=== PATIENT | female | born 1965 | race Caucasian/White ===

== ENCOUNTER 2018-05-04 10:31 | Outpatient (CLI) | payer BC | END 2018-05-04 23:59 | disposition home or self-care (01) | LOC: RAD 10:31 | PROVIDERS: ATTEND Family Medicine | DX: R56.9 Unspecified convulsions (principal); F17.200 Nicotine dependence, unspecified, uncomplicated; Z88.1 Allergy status to other antibiotic agents; Z88.8 Allergy status to other drugs, medicaments and biological substances | CPT/HCPCS: 95816 ==

== ENCOUNTER 2019-11-20 17:08 | Inpatient (IN) | payer BC, MEDICAID ==
[~2019-11-20] VITALS: Ht 165.1 cm; Wt 72.0 kg
[2019-11-20] MEDS ORDERED: ondansetron/PF 4mg/2ml inj IV ONE (17:30)
[2019-11-20] MEDS ORDERED: normal saline 1000ML IV soln IVB ONE (17:30)
[2019-11-20 18:13] LABS: AMMONIA < 10 UMOL/L (11-32)
[2019-11-20 18:16] LABS: BASOPHILS # (AUTO) 0.1 X10'3 (0-0.2); BASOPHILS % (AUTO) 0.6 % (0-1); EOSINOPHILS % (AUTO) 0.2 % (0-6); HEMATOCRIT 27.3 % (35.0-45.0); HEMOGLOBIN 9.1 g/dl (12.0-16.0); LYMPHOCYTES # (AUTO) 1.8 X10'3 (1.1-4.8); LYMPHOCYTES % (AUTO) 19.2 % (21-51); MEAN CORPUSCULAR HGB CONC 33.2 g/dL (33.0-36.5); MEAN CORPUSCULAR VOLUME 81.4 FL (78-98); MEAN PLATELET VOLUME 8.6 FL (7.4-10.4); MONOCYTES # (AUTO) 0.5 X10'3 (0-0.9); MONOCYTES % (AUTO) 5.8 % (2-12); NEUTROPHILS # (AUTO) 6.8 X10'3 (1.8-7.7); NEUTROPHILS % (AUTO) 74.2 % (42-75); PLATELET COUNT 244 X10'3 (140-440); RED BLOOD COUNT 3.36 X10'6 (4.20-5.60); RED CELL DISTRIBUTION WIDTH 15.1 % (11.5-14.5); WHITE BLOOD COUNT 9.2 X10'3 (4.5-11.0)
[2019-11-20 18:17] LABS: ALANINE AMINOTRANSFERASE 30 U/L (12-78); ALBUMIN 1.3 G/DL (3.4-5.0); ALBUMIN/GLOBULIN RATIO 0.4 (1.1-1.5); ALKALINE PHOSPHATASE 110 IU/L (46-116); ANION GAP 7 (8-16); ASPARTATE AMINO TRANSFERASE 119 U/L (10-37); BILIRUBIN,TOTAL 0.3 MG/DL (0.1-1.0); BLOOD UREA NITROGEN 25 MG/DL (7-18); BUN/CREATININE RATIO 10.6 (6.6-38.0); CALCIUM 8.1 MG/DL (8.5-10.1); CHLORIDE 105 MMOL/L (99-107); CREATININE 2.35 MG/DL (0.40-0.90); GLUCOSE 126 MG/DL (70-104); SODIUM 135 MMOL/L (135-145); TOTAL CARBON DIOXIDE 22.8 MMOL/L (24-32); TOTAL PROTEIN 4.5 G/DL (6.4-8.2); eGFR 21 ML/MIN
[2019-11-20 18:22] LABS: COLOR,URINE YELLOW (Yellow); GLUCOSE, URINE 100 mg/dl (Neg); KETONES,URINE NEGATIVE (Neg); LEUKOCYTE ESTERASE ,URINE NEGATIVE (Neg); NITRITES, URINE NEGATIVE (Neg); OCCULT BLOOD,URINE SMALL (Neg); PH,URINE 5.5 (4.8-8.0); PROTEIN,URINE >=300 mg/dl (Neg); UA COLLECTION TYPE STRAIGHT CATH; UROBILINOGEN,URINE 0.2 E.U/dL (0.2-1.0)
[2019-11-20 18:23] LABS: CLARITY,URINE SLIGHTLY CLOUDY (Clear); URINE AMPHETAMINE SCREEN NEGATIVE (Neg); URINE BARBITUATE SCREEN NEGATIVE (Neg); URINE BENZODIAZEPINES SCREEN NEGATIVE (Neg); URINE CANNABINOID SCREEN NEGATIVE (Neg); URINE COCAINE SCREEN NEGATIVE (Neg); URINE METHADONE SCREEN NEGATIVE (Neg); URINE OPIATE SCREEN NEGATIVE (Neg); URINE PHENCYCLIDINE SCREEN NEGATIVE (Neg)
[2019-11-20 18:34] LABS: ETHANOL < 0.010 GM/DL (0.0-0.010); POTASSIUM 2.8 MMOL/L (3.5-5.1)
[2019-11-20] MEDS ORDERED: potassium Cl 10 mEq/100mL bag IV ONE (18:35)
[2019-11-20] MEDS ORDERED: magnesium 2GM in 50ml NS 50 ML IV ONE (18:35)
[2019-11-20 18:41] LABS: BACTERIA,URINE NONE SEEN /HPF (Neg); RBC,URINE 0-2 /HPF (0-2); SQUAMOUS EPITHELIAL CELL,UR FEW /LPF (FEW); WBC,URINE NONE SEEN /HPF (0-4)
--- NOTE | 2019-11-20 18:41 | NUR ---
call from pt's son stated that she was dx with lupus about 8 months ago. also has not been eating or drinking at home for the last 4-5 days and getting worse mentally. has had multiple falls. Son Manuel [phone], kuldip Alicia [phone]
--- NOTE | 2019-11-20 19:04 | NUR ---
ASSUMED CARE OF PT TO BREAK PRIMARY OWEN HOSKINS FOR LUNCH FLUSHED BOTH IV SITES AND RECONNECTED BOLUS PT HAS RETURNED FROM CT, PT RECONNECT TO O2 SATS MONITOR AND HALF BACKER . PT CONFUSED AND UNABLE TO ANSWER QUESTIONS FOR MED REC WILL RESEARCH EXTERNAL MED HISTORY ,
[2019-11-20] MEDS ORDERED: METO100T14 PO (19:10)
[2019-11-20] MEDS ORDERED: ZONI100C31 PO (19:10)
--- NOTE | 2019-11-20 19:12 | NUR ---
EXTERNAL MED HX REVIEWED ONLY 2 SCRIPITS HAVE SHIV FILLED W/IN TH ELAST 60 DAYS . THOSE ARE THE ONLY MED TRANSFERED TO MED REC REPORTED OFF TO PRIMARY RN
[2019-11-20] MEDS ORDERED: magnesium 4gm in 100ml NS 100 ML IV PRN (19:55)
[2019-11-20] MEDS ORDERED: potassium Cl 20 mEq SR tablet PO PRN ×2 (19:55)
[2019-11-20] MEDS ORDERED: bisacodyl 10mg suppository rectal RC PRN (19:55)
[2019-11-20] MEDS ORDERED: acetaminophen 325mg tablet PO PRN (19:55)
[2019-11-20] MEDS ORDERED: magnesium Cl slow-release 64mg tablet PO PRN (19:55)
[2019-11-20] MEDS ORDERED: magnesium 2GM in 50ml NS 50 ML IV PRN (19:55)
[2019-11-20] MEDS ORDERED: mag hydrox/Alum hydrox/simeth 30ml oral suspension PO PRN (19:55)
[2019-11-20] MEDS ORDERED: magnesium hydroxide 30ml (MOM) UD suspension PO PRN (19:55)
[2019-11-20] MEDS: K and/or MAG REPLACEMENT MC SCH (20:00)
[2019-11-20] MEDS: docusate sod 100mg capsule PO SCH (20:00)
[2019-11-20 21:00] VITALS: BP 106/44
[2019-11-20] MEDS: potassium CL 10mEq/100ml bag 100 ML IV PRN ×2 (21:59→23:17)
[2019-11-20] MEDS: normal saline 1000ml 1,000 ML IV SCH (22:00)
[2019-11-20 22:02] LABS: MAGNESIUM 2.2 MG/DL (1.5-2.4)
--- NOTE | 2019-11-20 22:03 | NUR ---
MD Cabral aware of tele report, noted EKG and results of Mg from earlier in ER. will continue to monitor
[2019-11-21] VITALS (9 sets, daily range): BP systolic 72–120; BP diastolic 25–70
[2019-11-21] MEDS: potassium CL 10mEq/100ml bag 100 ML IV PRN ×5 (00:25→05:08)
[2019-11-21] MEDS: normal saline 1000ml 1,000 ML IV SCH ×2 (05:54→15:54)
[2019-11-21 06:37] LABS: ALANINE AMINOTRANSFERASE 23 U/L (12-78); ALBUMIN 1.1 G/DL (3.4-5.0); ALBUMIN/GLOBULIN RATIO 0.4 (1.1-1.5); ALKALINE PHOSPHATASE 99 IU/L (46-116); ANION GAP 10 (8-16); ASPARTATE AMINO TRANSFERASE 75 U/L (10-37); BILIRUBIN,TOTAL 0.3 MG/DL (0.1-1.0); BLOOD UREA NITROGEN 27 MG/DL (7-18); BUN/CREATININE RATIO 11.6 (6.6-38.0); CALCIUM 8.3 MG/DL (8.5-10.1); CHLORIDE 107 MMOL/L (99-107); CREATININE 2.33 MG/DL (0.40-0.90); GLUCOSE 125 MG/DL (70-104); MAGNESIUM 2.6 MG/DL (1.5-2.4); PHOSPHORUS 4.1 MG/DL (2.3-4.5); POTASSIUM 3.9 MMOL/L (3.5-5.1); SODIUM 135 MMOL/L (135-145); TOTAL CARBON DIOXIDE 17.6 MMOL/L (24-32); TOTAL PROTEIN 4.1 G/DL (6.4-8.2); eGFR 22 ML/MIN
[2019-11-21 06:54] LABS: BASOPHILS # (AUTO) 0.1 X10'3 (0-0.2); BASOPHILS % (AUTO) 0.6 % (0-1); EOSINOPHILS % (AUTO) 0.1 % (0-6); HEMATOCRIT 26.5 % (35.0-45.0); HEMOGLOBIN 8.7 g/dl (12.0-16.0); LYMPHOCYTES # (AUTO) 2.3 X10'3 (1.1-4.8); MEAN CORPUSCULAR HEMOGLOBIN 26.9 PG (27.0-31.0); MEAN CORPUSCULAR HGB CONC 32.9 g/dL (33.0-36.5); MEAN CORPUSCULAR VOLUME 81.8 FL (78-98); MEAN PLATELET VOLUME 9.1 FL (7.4-10.4); MONOCYTES # (AUTO) 0.8 X10'3 (0-0.9); MONOCYTES % (AUTO) 7.2 % (2-12); NEUTROPHILS # (AUTO) 8.3 X10'3 (1.8-7.7); NEUTROPHILS % (AUTO) 72.1 % (42-75); PLATELET COUNT 235 X10'3 (140-440); RED BLOOD COUNT 3.24 X10'6 (4.20-5.60); RED CELL DISTRIBUTION WIDTH 15.5 % (11.5-14.5); WHITE BLOOD COUNT 11.5 X10'3 (4.5-11.0)
[2019-11-21] MEDS ORDERED: atropine 0.1 mg/ml 5ml syringe ONE (08:00)
[2019-11-21] MEDS: K and/or MAG REPLACEMENT MC SCH ×2 (08:00→20:00)
[2019-11-21] MEDS: docusate sod 100mg capsule PO SCH ×2 (08:21→20:00)
[2019-11-21 10:44] LABS: HEMOGLOBIN A1C 6.1 % (4.5-6.2)
--- NOTE | 2019-11-21 10:51 | NUR ---
Page sent to EEG.... Guanakito German 358A: Electroencephalogram ordered. thanks! emerson [phone]
[2019-11-21] MEDS: zonisamide 100mg capsule PO SCH ×2 (11:00→20:00)
--- NOTE | 2019-11-21 11:23 | NUR ---
PAGER ID: [phone] MESSAGE: Guanakito GermanA: patient unable to finalize MRI of head. would you like Ativan order so they can finish? emerson [phone]
--- NOTE | 2019-11-21 11:31 | NUR ---
Patient's BMI is on the high end of underweight however current documented wt isn't scaled. Pt with active regular diet order, documented with 0% PO intake at breakfast this morning. Pt admit with N/V and AMS, currently at MRI. Pt with no significant decrease in muscle strength or edema. Pt appears well developed, well nourished per ED report. Pt currently lacks a minimum of two criteria for malnutrition. Will continue to follow. Addendum: 11/21/19 at [address] Amended: Links added.
[2019-11-21] MEDS ORDERED: LORazepam 2 mg/ml vial IV ONE (11:50)
[2019-11-21] MEDS: ondansetron/PF 4mg/2ml inj IV PRN (12:02)
[2019-11-21] MEDS: pantoprazole 40 MG vial IV SCH (12:02)
--- NOTE | 2019-11-21 12:09 | NUR ---
Page sent to MRI... Guanakito German 358A: Patient ready to finish MRI. Ativan given. thanks! emerson [phone]
--- NOTE | 2019-11-21 13:58 | NUR ---
PAGER ID: [phone] MESSAGE: Guanakito German: Radiologist called. MRI showed multiple acute infarct. The largest is in the right parietal region. MRA was non-diagnostic because she was moving. emerson [phone]
--- NOTE | 2019-11-21 14:11 | NUR ---
orthopedically impaired teacher stroke nurse paged. She notified me that when she gets here, she will bring the teleneuro machine up to the floor with a stroke packet and go over everything.
--- NOTE | 2019-11-21 14:42 | NUR ---
Teleneuro consult completed. Stroke RN at bedside
--- NOTE | 2019-11-21 14:45 | NUR ---
Discussed need for EEG today with Dr Suarez neurologist and he said probably not needed unless patient stays altered. Discussed with automated equipment engineer technician and she will follow up tomorrow.
--- NOTE | 2019-11-21 14:58 | NUR ---
Dr Pratt notified of neuro telemedicine evaluation completion, order received for transfer to the neuro unit, Irene WEAVER notified.
[2019-11-21 15:03] LABS: CHOL/HDL RATIO 6.7 (0.00-4.99); CHOLESTEROL 194 MG/DL (0-200); HDL CHOLESTEROL 29 MG/DL (35-60); LDL CHOLESTEROL 121 MG/DL (50-100); TRIGLYCERIDES 173 MG/DL (20-135)
[2019-11-21] MEDS ORDERED: aspirin 325mg tablet PO ONE (16:00)
[2019-11-21] MEDS ORDERED: clopidogrel 75mg tablet PO SCH (16:00)
[2019-11-21] MEDS: atorvastatin 20mg tablet PO SCH (16:22)
--- NOTE | 2019-11-21 16:30 | NUR ---
Patient has not voided on my shift. bladder scan around 1530 shows 1ml. MD aware.
--- NOTE | 2019-11-21 16:52 | NUR ---
Patient report given to OWEN Casey on Neuro.
--- NOTE | 2019-11-21 17:05 | NUR ---
Patient transferred to Neuro unit. All belongings taken with patient. Report called. Patient specific medications sent with patient.
--- NOTE | 2019-11-21 17:57 | NUR ---
Patient in room ORTHO 4008. I have received report from OWEN Carlin at 1645 and had the opportunity to ask questions and assume patient care. Pt arrived on the floor at 1500 in stable condition vitals, skin check and NIH done
--- NOTE | 2019-11-21 18:10 | NUR ---
Problems reprioritized. Patient report given, questions answered & plan of care reviewed with OWEN Crain.
[2019-11-21] MEDS ORDERED: normal saline 1000ml 1,000 ML IV ONE (22:55)
[2019-11-21] MEDS ORDERED: heparin 10,000 units/1 ML INJ IV PRN (23:15)
[2019-11-21] MEDS ORDERED: heparin 10,000 units/1 ML INJ IV ONE (23:15)
[2019-11-21 23:57] LABS: PARTIAL THROMBOPLASTIN TIME 26 SECONDS (22-32)
[2019-11-22] VITALS (28 sets, daily range): BP systolic 85–149; BP diastolic 43–62
--- NOTE | 2019-11-22 00:32 | NUR ---
Patient in room ORTHO 4008. I have received report from Breann WEAVER and had the opportunity to ask questions and assume patient care.
[2019-11-22] MEDS: heparin 25,000 UNIT/250ml bag 250 ML IV SCH (01:06)
[2019-11-22] MEDS: normal saline 1000ml 1,000 ML IV SCH ×3 (01:54→22:25)
--- NOTE | 2019-11-22 02:03 | NUR ---
PAGER ID: [phone] MESSAGE: Romy German [id number]: Patients heart rate dipped into the 20s. She is now sitting in the low 30s -Liyah WEAVER [phone]
[2019-11-22] MEDS ORDERED: atropine 1 MG/1 ML vial IV ONE (02:05)
[2019-11-22] MEDS ORDERED: normal saline 1000ml 1,000 ML IV ONE (02:05)
[2019-11-22] MEDS ORDERED: fentaNYL/PF 50MCG/1 ML 2ML syringe IV PRN (02:15)
[2019-11-22] MEDS ORDERED: morphine 2 MG/ML inj. syringe IV ONE (02:25)
[2019-11-22] MEDS: morphine 2 MG/ML inj. syringe IV PRN ×4 (02:30→11:14)
[2019-11-22] MEDS ORDERED: LORazepam 2 mg/ml vial IV ONE (02:35)
[2019-11-22] MEDS: DOPamine 400mg/D5W 250ml 250 ML IV SCH (03:04)
--- NOTE | 2019-11-22 03:47 | NUR ---
Problems reprioritized. Patient report given, questions answered & plan of care reviewed with Dinorah WEAVER.
--- NOTE | 2019-11-22 03:48 | NUR ---
Rapid Response A rapid response was called on this patient. On arrival to bedside, the patient was hypotensive and bradycardic. Interventions: Patient was being externally paced and on a dobutamine gtt. Rapid response outcome: Patient transferred to ICU Addendum: 11/22/19 at 0520 by Robyn Fierro RN dopamine gtt. Not dobutamine
[2019-11-22 04:04] LABS: BASOPHILS # (AUTO) 0.1 X10'3 (0-0.2); BASOPHILS % (AUTO) 0.4 % (0-1); EOSINOPHILS % (AUTO) 0 % (0-6); HEMATOCRIT 34.5 % (35.0-45.0); HEMOGLOBIN 11.1 g/dl (12.0-16.0); LYMPHOCYTES # (AUTO) 2.4 X10'3 (1.1-4.8); MEAN CORPUSCULAR HEMOGLOBIN 26.5 PG (27.0-31.0); MEAN CORPUSCULAR HGB CONC 32.3 g/dL (33.0-36.5); MEAN CORPUSCULAR VOLUME 82.1 FL (78-98); MEAN PLATELET VOLUME 8.7 FL (7.4-10.4); MONOCYTES # (AUTO) 0.9 X10'3 (0-0.9); MONOCYTES % (AUTO) 4.6 % (2-12); NEUTROPHILS # (AUTO) 16.3 X10'3 (1.8-7.7); PLATELET COUNT 345 X10'3 (140-440); RED CELL DISTRIBUTION WIDTH 15.6 % (11.5-14.5); WHITE BLOOD COUNT 19.7 X10'3 (4.5-11.0)
[2019-11-22 04:20] LABS: ALANINE AMINOTRANSFERASE 22 U/L (12-78); ALBUMIN 1.2 G/DL (3.4-5.0); ALBUMIN/GLOBULIN RATIO 0.4 (1.1-1.5); ALKALINE PHOSPHATASE 109 IU/L (46-116); ANION GAP 11 (8-16); ASPARTATE AMINO TRANSFERASE 45 U/L (10-37); BILIRUBIN,TOTAL 0.3 MG/DL (0.1-1.0); BLOOD UREA NITROGEN 34 MG/DL (7-18); BUN/CREATININE RATIO 11.8 (6.6-38.0); CALCIUM 7.8 MG/DL (8.5-10.1); CHLORIDE 108 MMOL/L (99-107); CREATININE 2.87 MG/DL (0.40-0.90); GLUCOSE 158 MG/DL (70-104); POTASSIUM 4.2 MMOL/L (3.5-5.1); SODIUM 135 MMOL/L (135-145); TOTAL CARBON DIOXIDE 16.3 MMOL/L (24-32); TOTAL PROTEIN 4.5 G/DL (6.4-8.2); eGFR 17 ML/MIN
[2019-11-22 04:24] LABS: MAGNESIUM 2.5 MG/DL (1.5-2.4); PHOSPHORUS 5.1 MG/DL (2.3-4.5)
[2019-11-22 04:31] LABS: TROPONIN I 34.27 NG/ML (0.0-0.05)
[2019-11-22] MEDS: ISOPROTERENOL IV SCH ×4 (04:45→22:23)
[2019-11-22] MEDS: NORMAL SALINE IV SCH ×4 (04:45→22:23)
[2019-11-22] MEDS: K and/or MAG REPLACEMENT MC SCH ×2 (06:57→20:00)
[2019-11-22] MEDS: pantoprazole 40 MG vial IV SCH (07:52)
[2019-11-22] MEDS: ondansetron/PF 4mg/2ml inj IV PRN (07:52)
[2019-11-22] MEDS: docusate sod 100mg capsule PO SCH ×2 (08:00→20:44)
[2019-11-22] MEDS: atorvastatin 20mg tablet PO SCH (08:00)
[2019-11-22] MEDS: zonisamide 100mg capsule PO SCH ×2 (08:00→20:43)
--- NOTE | 2019-11-22 08:00 | NUR ---
morphine given for recurrent CP
[2019-11-22] MEDS ORDERED: aspirin 325mg tablet PO SCH (08:30)
--- NOTE | 2019-11-22 11:04 | NUR ---
DM Consult: Pt A1C less than 7 and not appropriate for DM ed at this time. Addendum: 11/22/19 at [address] Amended: Links added.
[2019-11-22 11:13] LABS: CLARITY,URINE TURBID (Clear); COLOR,URINE YELLOW (Yellow); GLUCOSE, URINE 100 mg/dl (Neg); KETONES,URINE NEGATIVE (Neg); LEUKOCYTE ESTERASE ,URINE NEGATIVE (Neg); NITRITES, URINE NEGATIVE (Neg); OCCULT BLOOD,URINE MODERATE (Neg); PH,URINE 5.5 (4.8-8.0); PROTEIN,URINE >=300 mg/dl (Neg); UROBILINOGEN,URINE 0.2 E.U/dL (0.2-1.0)
[2019-11-22 11:14] LABS: HYALINE CASTS >30 /LPF (NEGATIVE); UA COLLECTION TYPE NON-SPECIFIED
[2019-11-22 11:18] LABS: SQUAMOUS EPITHELIAL CELL,UR FEW /LPF (FEW); TRANSITIONAL EPI CELLS,URINE FEW /HPF
[2019-11-22 11:19] LABS: BACTERIA,URINE 1+ /HPF (Neg)
[2019-11-22 11:20] LABS: RBC,URINE 0-2 /HPF (0-2)
[2019-11-22 11:22] LABS: TOTAL PROTEIN,URINE RANDOM 1299.8 MG/DL
[2019-11-22 11:50] LABS: UA EOSINOPHILS NO EOS /HPF
[2019-11-22] MEDS ORDERED: furosemide 40mg/4ml inj IV ONE (13:55)
--- NOTE | 2019-11-22 18:41 | NUR ---
external pacemaker off per dr aguilar at the bedside, may use if needed per HUNTER patient has intrinsic beat of 74
[2019-11-23] VITALS (23 sets, daily range): BP systolic 102–140; BP diastolic 46–61
[2019-11-23] MEDS: DOPamine 400mg/D5W 250ml 250 ML IV SCH (02:06)
[2019-11-23 05:45] LABS: BASOPHILS # (AUTO) 0.1 X10'3 (0-0.2); BASOPHILS % (AUTO) 0.6 % (0-1); EOSINOPHILS % (AUTO) 0.1 % (0-6); LYMPHOCYTES # (AUTO) 2.1 X10'3 (1.1-4.8); MEAN CORPUSCULAR HEMOGLOBIN 27.5 PG (27.0-31.0); MEAN CORPUSCULAR HGB CONC 33.4 g/dL (33.0-36.5); MEAN CORPUSCULAR VOLUME 82.3 FL (78-98); MEAN PLATELET VOLUME 9.4 FL (7.4-10.4); MONOCYTES # (AUTO) 0.7 X10'3 (0-0.9); MONOCYTES % (AUTO) 6.5 % (2-12); NEUTROPHILS # (AUTO) 8.2 X10'3 (1.8-7.7); NEUTROPHILS % (AUTO) 73.8 % (42-75); PLATELET COUNT 294 X10'3 (140-440); RED BLOOD COUNT 2.92 X10'6 (4.20-5.60); RED CELL DISTRIBUTION WIDTH 15.7 % (11.5-14.5); WHITE BLOOD COUNT 11.2 X10'3 (4.5-11.0)
[2019-11-23 06:06] LABS: ALANINE AMINOTRANSFERASE 15 U/L (12-78); ALBUMIN 1.1 G/DL (3.4-5.0); ALBUMIN/GLOBULIN RATIO 0.4 (1.1-1.5); ALKALINE PHOSPHATASE 90 IU/L (46-116); ANION GAP 13 (8-16); ASPARTATE AMINO TRANSFERASE 34 U/L (10-37); BILIRUBIN,TOTAL 0.2 MG/DL (0.1-1.0); BLOOD UREA NITROGEN 37 MG/DL (7-18); BUN/CREATININE RATIO 12.3 (6.6-38.0); CALCIUM 8.1 MG/DL (8.5-10.1); CHLORIDE 111 MMOL/L (99-107); CREATININE 3.02 MG/DL (0.40-0.90); GLUCOSE 100 MG/DL (70-104); MAGNESIUM 2.2 MG/DL (1.5-2.4); POTASSIUM 3.6 MMOL/L (3.5-5.1); SODIUM 138 MMOL/L (135-145); TOTAL PROTEIN 4.1 G/DL (6.4-8.2); eGFR 16 ML/MIN
[2019-11-23 06:15] LABS: TOTAL CARBON DIOXIDE 13.9 MMOL/L (24-32)
--- NOTE | 2019-11-23 06:33 | NUR ---
Patient in room CICU 2007. I have received report from Harsha WEAVER and had the opportunity to ask questions and assume patient care.
[2019-11-23] MEDS: K and/or MAG REPLACEMENT MC SCH ×2 (08:00→20:00)
[2019-11-23] MEDS: zonisamide 100mg capsule PO SCH ×2 (08:36→21:04)
[2019-11-23] MEDS: docusate sod 100mg capsule PO SCH ×2 (08:36→20:00)
[2019-11-23] MEDS: pantoprazole 40 MG vial IV SCH (08:36)
[2019-11-23] MEDS: atorvastatin 20mg tablet PO SCH (08:36)
[2019-11-23] MEDS: NORMAL SALINE IV SCH ×2 (10:07→16:19)
[2019-11-23] MEDS: sodium bicarbonate (8.4%) inj. 150 MEQ in dextrose 5%-water 1,000 ML IV SCH (10:07)
[2019-11-23] MEDS: ISOPROTERENOL IV SCH ×2 (10:07→16:19)
[2019-11-23] MEDS: heparin 25,000 UNIT/250ml bag 250 ML IV SCH ×2 (12:12→15:27)
--- NOTE | 2019-11-23 18:33 | NUR ---
Patient report given, questions answered & plan of care reviewed with Raudel WEAVER.
[2019-11-24] VITALS (24 sets, daily range): BP systolic 110–144; BP diastolic 52–79
[2019-11-24] MEDS: sodium bicarbonate (8.4%) inj. 150 MEQ in dextrose 5%-water 1,000 ML IV SCH ×2 (00:41→17:39)
[2019-11-24 01:38] LABS: BASOPHILS # (AUTO) 0.1 X10'3 (0-0.2); BASOPHILS % (AUTO) 0.7 % (0-1); EOSINOPHILS % (AUTO) 0.3 % (0-6); HEMATOCRIT 23.7 % (35.0-45.0); LYMPHOCYTES # (AUTO) 1.9 X10'3 (1.1-4.8); LYMPHOCYTES % (AUTO) 22.4 % (21-51); MEAN CORPUSCULAR HEMOGLOBIN 27.9 PG (27.0-31.0); MEAN CORPUSCULAR HGB CONC 33.9 g/dL (33.0-36.5); MEAN CORPUSCULAR VOLUME 82.3 FL (78-98); MEAN PLATELET VOLUME 9.2 FL (7.4-10.4); MONOCYTES # (AUTO) 0.6 X10'3 (0-0.9); MONOCYTES % (AUTO) 6.5 % (2-12); NEUTROPHILS % (AUTO) 70.1 % (42-75); PLATELET COUNT 306 X10'3 (140-440); RED BLOOD COUNT 2.88 X10'6 (4.20-5.60); RED CELL DISTRIBUTION WIDTH 15.6 % (11.5-14.5); WHITE BLOOD COUNT 8.6 X10'3 (4.5-11.0)
[2019-11-24 01:55] LABS: ALANINE AMINOTRANSFERASE 17 U/L (12-78); ALBUMIN 1.1 G/DL (3.4-5.0); ALBUMIN/GLOBULIN RATIO 0.4 (1.1-1.5); ALKALINE PHOSPHATASE 91 IU/L (46-116); ANION GAP 11 (8-16); ASPARTATE AMINO TRANSFERASE 31 U/L (10-37); BILIRUBIN,TOTAL 0.2 MG/DL (0.1-1.0); BLOOD UREA NITROGEN 35 MG/DL (7-18); BUN/CREATININE RATIO 12.5 (6.6-38.0); CALCIUM 7.7 MG/DL (8.5-10.1); CHLORIDE 108 MMOL/L (99-107); CREATININE 2.81 MG/DL (0.40-0.90); GLUCOSE 152 MG/DL (70-104); MAGNESIUM 2.2 MG/DL (1.5-2.4); PHOSPHORUS 4.2 MG/DL (2.3-4.5); POTASSIUM 3.6 MMOL/L (3.5-5.1); SODIUM 138 MMOL/L (135-145); TOTAL CARBON DIOXIDE 18.9 MMOL/L (24-32); TOTAL PROTEIN 4.2 G/DL (6.4-8.2); eGFR 17 ML/MIN
[2019-11-24] MEDS: heparin 25,000 UNIT/250ml bag 250 ML IV SCH (02:36)
[2019-11-24] MEDS: NORMAL SALINE IV SCH ×3 (06:25→23:05)
[2019-11-24] MEDS: ISOPROTERENOL IV SCH ×3 (06:25→23:05)
[2019-11-24] MEDS: K and/or MAG REPLACEMENT MC SCH ×2 (07:35→20:00)
[2019-11-24] MEDS: docusate sod 100mg capsule PO SCH ×2 (07:35→20:30)
[2019-11-24] MEDS: zonisamide 100mg capsule PO SCH ×2 (08:01→20:30)
[2019-11-24] MEDS: pantoprazole 40mg Tablet.DR PO SCH (08:01)
[2019-11-24] MEDS: atorvastatin 20mg tablet PO SCH (08:01)
[2019-11-24 16:00] LABS: FERRITIN 219 NG/ML (8-252)
[2019-11-24 16:12] LABS: % IRON SATURATION 6 % (11-46); IRON 5 UG/DL (49-151); TOTAL IRON BINDING CAPACITY 81 UG/DL (259-388)
--- NOTE | 2019-11-24 19:05 | NUR ---
Patient in room CICU 2007. I have received report from Vicky WEAVER and had the opportunity to ask questions and assume patient care.
[2019-11-24] MEDS ORDERED: insulin Lispro (HumaLOG) vial - multi-dose SQ SCH (19:50)
[2019-11-24] MEDS ORDERED: glucagon, human recombinant 1mg kit SUBCUT PRN (19:50)
[2019-11-24] MEDS ORDERED: dextrose 50%-water 50ml dispensing syringe IV PRN ×2 (19:50)
[2019-11-24] MEDS ORDERED: dextrose ORAL solution 15 GM/59 ML bottle PO PRN ×2 (19:50)
[2019-11-24] MEDS ORDERED: insulin glargine (Lantus) pen - multi-dose SQ SCH (21:00)
[2019-11-24 21:43] LABS: CLARITY,URINE CLOUDY (Clear); GLUCOSE, URINE 100 mg/dl (Neg); KETONES,URINE NEGATIVE (Neg); LEUKOCYTE ESTERASE ,URINE SMALL (Neg); NITRITES, URINE NEGATIVE (Neg); OCCULT BLOOD,URINE LARGE (Neg); PH,URINE 5.5 (4.8-8.0); PROTEIN,URINE >=300 mg/dl (Neg); UROBILINOGEN,URINE 0.2 E.U/dL (0.2-1.0)
[2019-11-24 21:55] LABS: COLOR,URINE AMBER (Yellow); UA COLLECTION TYPE FOLEY CATH
[2019-11-24 21:57] LABS: BACTERIA,URINE 3+ /HPF (Neg); RBC,URINE TNTC /HPF (0-2); SQUAMOUS EPITHELIAL CELL,UR FEW /LPF (FEW); WBC,URINE 30-50 /HPF (0-4)
[2019-11-24 21:58] LABS: COARSE GRANULAR CAST 0-3 /LPF (NEGATIVE); FINE GRANULAR CAST 0-3 /LPF (NEGATIVE); HYALINE CASTS 0-3 /LPF (NEGATIVE); MUCUS STRANDS FEW /LPF (Neg); TRANSITIONAL EPI CELLS,URINE FEW /HPF
[2019-11-25] VITALS (19 sets, daily range): BP systolic 120–171; BP diastolic 61–93
--- NOTE | 2019-11-25 06:00 | NUR ---
Patient in room CICU 2007. I have received report from OWEN Starks and had the opportunity to ask questions and assume patient care.
[2019-11-25 06:43] LABS: BASOPHILS % (AUTO) 0.5 % (0-1); EOSINOPHILS % (AUTO) 0.2 % (0-6); HEMATOCRIT 23.6 % (35.0-45.0); HEMOGLOBIN 7.9 g/dl (12.0-16.0); LYMPHOCYTES # (AUTO) 1.5 X10'3 (1.1-4.8); LYMPHOCYTES % (AUTO) 15.4 % (21-51); MEAN CORPUSCULAR HEMOGLOBIN 27.5 PG (27.0-31.0); MEAN CORPUSCULAR HGB CONC 33.6 g/dL (33.0-36.5); MEAN CORPUSCULAR VOLUME 81.8 FL (78-98); MEAN PLATELET VOLUME 8.8 FL (7.4-10.4); MONOCYTES # (AUTO) 0.7 X10'3 (0-0.9); NEUTROPHILS # (AUTO) 7.4 X10'3 (1.8-7.7); NEUTROPHILS % (AUTO) 76.9 % (42-75); PLATELET COUNT 356 X10'3 (140-440); RED BLOOD COUNT 2.88 X10'6 (4.20-5.60); RED CELL DISTRIBUTION WIDTH 15.7 % (11.5-14.5); WHITE BLOOD COUNT 9.6 X10'3 (4.5-11.0)
[2019-11-25] MEDS: heparin 25,000 UNIT/250ml bag 250 ML IV SCH (06:45)
[2019-11-25 07:05] LABS: ALANINE AMINOTRANSFERASE 16 U/L (12-78); ALBUMIN < 0.6 G/DL (3.4-5.0); ALKALINE PHOSPHATASE 95 IU/L (46-116); ANION GAP 11 (8-16); ASPARTATE AMINO TRANSFERASE 22 U/L (10-37); BILIRUBIN,TOTAL 0.2 MG/DL (0.1-1.0); BLOOD UREA NITROGEN 41 MG/DL (7-18); BUN/CREATININE RATIO 14.7 (6.6-38.0); CALCIUM 8.1 MG/DL (8.5-10.1); CHLORIDE 105 MMOL/L (99-107); CREATININE 2.78 MG/DL (0.40-0.90); GLUCOSE 151 MG/DL (70-104); MAGNESIUM 2.2 MG/DL (1.5-2.4); PHOSPHORUS 4.6 MG/DL (2.3-4.5); POTASSIUM 3.3 MMOL/L (3.5-5.1); SODIUM 137 MMOL/L (135-145); TOTAL CARBON DIOXIDE 21.2 MMOL/L (24-32); TOTAL PROTEIN 4.4 G/DL (6.4-8.2); eGFR 18 ML/MIN
[2019-11-25 07:06] LABS: ALBUMIN/GLOBULIN RATIO 0.2 (1.1-1.5)
[2019-11-25] MEDS: docusate sod 100mg capsule PO SCH ×2 (07:24→19:52)
[2019-11-25] MEDS: atorvastatin 20mg tablet PO SCH (07:24)
[2019-11-25] MEDS: zonisamide 100mg capsule PO SCH ×2 (07:24→19:51)
[2019-11-25] MEDS: pantoprazole 40mg Tablet.DR PO SCH (07:24)
[2019-11-25] MEDS: NORMAL SALINE IV SCH (07:25)
[2019-11-25] MEDS: ISOPROTERENOL IV SCH (07:25)
[2019-11-25] MEDS: K and/or MAG REPLACEMENT MC SCH ×2 (08:00→19:39)
--- NOTE | 2019-11-25 08:11 | NUR ---
Patient blood sugar 141. Patient is not eating. No insulin given at this time. Will continue to monitor.
[2019-11-25] MEDS: sodium bicarbonate (8.4%) inj. 150 MEQ in dextrose 5%-water 1,000 ML IV SCH (10:21)
--- NOTE | 2019-11-25 11:40 | NUR ---
Patients jefferson discontinued per jefferson protocol. Patient tolerated well. Attempting to void at this time. will continue to monitor
[2019-11-25] MEDS ORDERED: potassium Cl 20 mEq SR tablet PO PRN ×2 (11:50)
[2019-11-25] MEDS ORDERED: magnesium Cl slow-release 64mg tablet PO PRN (11:50)
[2019-11-25] MEDS ORDERED: magnesium 4gm in 100ml NS 100 ML IV PRN (11:50)
[2019-11-25] MEDS ORDERED: potassium CL 10mEq/100ml bag 100 ML IV PRN (11:50)
[2019-11-25] MEDS: carVEDilol 3.125mg tablet PO SCH ×2 (11:56→19:52)
--- NOTE | 2019-11-25 14:55 | NUR ---
RECEIVED TELEPHONE REPORT FROM OWEN TERRAZAS.
--- NOTE | 2019-11-25 15:00 | NUR ---
Problems reprioritized. Patient report given, questions answered & plan of care reviewed with OWEN Barone.
--- NOTE | 2019-11-25 15:10 | NUR ---
Initial: Pt admit w/ encephalopathy DX CVA, STEMI, and acute on chronic renal failure creatinine plateau so likely no need for HD per MD. Pt AOx2 at this time w/ sitter present advanced to mechanical soft/grind all/renal diet per SENIOR COMPUTER SPECIALIST/MD recs. PO 0%/refusing past 4 days since admit not meeting needs w/ ALOC. RN reports pt is able to self-feed and drink without assistance but sitter is present to aid w/ PO. Given refusal of meals ONS not appropriate at this time; RD d/w RN regarding liberalization to regular diet if MD agreeable given poor PO hx. No BM since admit past 4 days receiving routine colace; RD d/w RN regarding additional bowel care if MD agreeable. Is receiving PRN morphine would likely benefit from opioid antagonist if MD agreeable to aid bowel care. Pt continues to request to go home per RN; poor PO likely r/t ALOC and possible constipation. IF poor PO persists pt will meet minimum malnutrition criteria and may require nutrition support to meet needs. Will continue to monitor. Rec: 1. continue mechanical soft/grind all/regular diet per SENIOR COMPUTER SPECIALIST/MD 2. consider diet liberalization to regular to aid poor PO hx 3. monitor for ONS needs if PO acceptance 4. supplemental nutrition support if still no/little PO day 7 and MD agreeable 5. routine bowel care; opioid antagonist if MD agreeable given constipation on morphine 6. weekly wts Addendum: 11/25/19 at [address] Amended: Links added.
[2019-11-25] MEDS ORDERED: POTASSIUM BICARBONATE/CIT AC 10 MEQ TABLET.EFF PO PRN (15:13)
[2019-11-25] MEDS ORDERED: POTASSIUM BICARB 20meq eff tab 20 MEQ TABLET.EFF PO PRN (15:14)
--- NOTE | 2019-11-25 15:15 | NUR ---
Patient transferred to [facility] with all known belongings. patient transported via hospital bed and transferred to tele bed via slide board. RN and sitter at bedside.
--- NOTE | 2019-11-25 15:25 | NUR ---
RECEVED FROM CICU VIA BED. AGREE WITH PRIOR ASSESSMENT. DENIES PAIN, DIZZINESS, SOB. VS STABLE. HAS SITTER.
[2019-11-25] MEDS: POTASSIUM BICARB 20meq eff tab 20 MEQ TABLET.EFF PO PRN (16:34)
--- NOTE | 2019-11-25 18:32 | NUR ---
Problems reprioritized. Patient report given, questions answered & plan of care reviewed with OWEN OLIVEIRA.
--- NOTE | 2019-11-25 18:35 | NUR ---
Patient in room PCU 3016. I have received report from Abisai WEAVER and had the opportunity to ask questions and assume patient care.
--- NOTE | 2019-11-25 20:32 | NUR ---
Patient refused all medications including potassium replacement. Educated on the importance of each medication. Patient continues to refuse.
--- NOTE | 2019-11-26 01:16 | NUR ---
Problems reprioritized. Patient report given, questions answered & plan of care reviewed with LAAMR WEAVER.
[2019-11-26 03:00] VITALS: BP 152/90
[2019-11-26 06:00] VITALS: BP 152/85
[2019-11-26 06:28] LABS: MAGNESIUM 2.1 MG/DL (1.5-2.4); POTASSIUM 3.1 MMOL/L (3.5-5.1)
--- NOTE | 2019-11-26 06:32 | NUR ---
Patient in room PCU 3016. I have received report from OWEN NEWTON and had the opportunity to ask questions and assume patient care.
[2019-11-26] MEDS: pantoprazole 40mg Tablet.DR PO SCH (07:30)
[2019-11-26] MEDS: docusate sod 100mg capsule PO SCH ×2 (08:00→20:00)
[2019-11-26] MEDS: zonisamide 100mg capsule PO SCH ×2 (08:00→20:00)
[2019-11-26] MEDS: atorvastatin 20mg tablet PO SCH (08:00)
[2019-11-26] MEDS: carVEDilol 3.125mg tablet PO SCH ×2 (08:00→20:00)
[2019-11-26] MEDS: K and/or MAG REPLACEMENT MC SCH ×2 (08:00→20:00)
--- NOTE | 2019-11-26 08:57 | NUR ---
REFUSED ALL MEDICATIONS, REFUSED TO COOPERATE WITH NEURO CHECK, REFUSED TO BE CONNECTED TO IV POTASSIUM REPLACEMENT. DR. HAYNES NOTIFIED.
[2019-11-26 09:25] LABS: BASOPHILS % (AUTO) 0.4 % (0-1); EOSINOPHILS % (AUTO) 0.6 % (0-6); HEMATOCRIT 24.5 % (35.0-45.0); HEMOGLOBIN 8.2 g/dl (12.0-16.0); LYMPHOCYTES # (AUTO) 1.1 X10'3 (1.1-4.8); LYMPHOCYTES % (AUTO) 17.8 % (21-51); MEAN CORPUSCULAR HEMOGLOBIN 26.8 PG (27.0-31.0); MEAN CORPUSCULAR HGB CONC 33.4 g/dL (33.0-36.5); MEAN CORPUSCULAR VOLUME 80.2 FL (78-98); MEAN PLATELET VOLUME 9.1 FL (7.4-10.4); MONOCYTES # (AUTO) 0.4 X10'3 (0-0.9); MONOCYTES % (AUTO) 6.4 % (2-12); NEUTROPHILS # (AUTO) 4.7 X10'3 (1.8-7.7); NEUTROPHILS % (AUTO) 74.8 % (42-75); PLATELET COUNT 386 X10'3 (140-440); RED BLOOD COUNT 3.06 X10'6 (4.20-5.60); RED CELL DISTRIBUTION WIDTH 15.6 % (11.5-14.5); WHITE BLOOD COUNT 6.3 X10'3 (4.5-11.0)
[2019-11-26 09:42] LABS: ALBUMIN 0.9 G/DL (3.4-5.0); ANION GAP 10 (8-16); BLOOD UREA NITROGEN 38 MG/DL (7-18); BUN/CREATININE RATIO 15.3 (6.6-38.0); CALCIUM 8.1 MG/DL (8.5-10.1); CHLORIDE 105 MMOL/L (99-107); CREATININE 2.49 MG/DL (0.40-0.90); GLUCOSE 102 MG/DL (70-104); MAGNESIUM 2.1 MG/DL (1.5-2.4); PHOSPHORUS 4.5 MG/DL (2.3-4.5); POTASSIUM 3.2 MMOL/L (3.5-5.1); SODIUM 138 MMOL/L (135-145); TOTAL CARBON DIOXIDE 22.7 MMOL/L (24-32); eGFR 20 ML/MIN
[2019-11-26 11:00] VITALS: BP 167/74
[2019-11-26] MEDS: iron sucrose complex injection 200 MG in normal saline 100ml IV soln 100 ML IV SCH (11:05)
[2019-11-26] MEDS ORDERED: LORazepam 2 mg/ml vial IV ONE (11:10)
[2019-11-26 15:00] VITALS: BP 131/69
[2019-11-26] MEDS: clopidogrel 75mg tablet PO SCH (15:54)
[2019-11-26 18:30] VITALS: BP 153/82
--- NOTE | 2019-11-26 18:31 | NUR ---
Problems reprioritized. Patient report given, questions answered & plan of care reviewed with florentino Swanson.
[2019-11-26 22:00] VITALS: BP 140/92
[2019-11-27 02:00] VITALS: BP 163/90
[2019-11-27 06:14] LABS: BASOPHILS % (AUTO) 0.5 % (0-1); EOSINOPHILS # (AUTO) 0.1 X10'3 (0-0.9); EOSINOPHILS % (AUTO) 1.3 % (0-6); HEMATOCRIT 26.1 % (35.0-45.0); HEMOGLOBIN 8.5 g/dl (12.0-16.0); LYMPHOCYTES # (AUTO) 1.8 X10'3 (1.1-4.8); LYMPHOCYTES % (AUTO) 26.2 % (21-51); MEAN CORPUSCULAR HEMOGLOBIN 26.5 PG (27.0-31.0); MEAN CORPUSCULAR HGB CONC 32.7 g/dL (33.0-36.5); MEAN CORPUSCULAR VOLUME 81.1 FL (78-98); MEAN PLATELET VOLUME 8.4 FL (7.4-10.4); MONOCYTES # (AUTO) 0.6 X10'3 (0-0.9); MONOCYTES % (AUTO) 8.2 % (2-12); NEUTROPHILS # (AUTO) 4.4 X10'3 (1.8-7.7); NEUTROPHILS % (AUTO) 63.8 % (42-75); PLATELET COUNT 457 X10'3 (140-440); RED BLOOD COUNT 3.21 X10'6 (4.20-5.60); RED CELL DISTRIBUTION WIDTH 15.8 % (11.5-14.5); WHITE BLOOD COUNT 6.9 X10'3 (4.5-11.0)
[2019-11-27 06:19] LABS: ANION GAP 10 (8-16); BLOOD UREA NITROGEN 37 MG/DL (7-18); BUN/CREATININE RATIO 15.2 (6.6-38.0); CALCIUM 8.4 MG/DL (8.5-10.1); CHLORIDE 106 MMOL/L (99-107); CREATININE 2.44 MG/DL (0.40-0.90); GLUCOSE 86 MG/DL (70-104); MAGNESIUM 2.2 MG/DL (1.5-2.4); PHOSPHORUS 4.3 MG/DL (2.3-4.5); POTASSIUM 3.2 MMOL/L (3.5-5.1); SODIUM 138 MMOL/L (135-145); TOTAL CARBON DIOXIDE 22.5 MMOL/L (24-32); eGFR 20 ML/MIN
--- NOTE | 2019-11-27 07:00 | NUR ---
Patient in room PCU 3016. I have received report from Kiki WEAVER and had the opportunity to ask questions and assume patient care.
[2019-11-27 07:30] VITALS: BP 136/72
[2019-11-27] MEDS: pantoprazole 40mg Tablet.DR PO SCH (08:38)
[2019-11-27] MEDS: carVEDilol 3.125mg tablet PO SCH ×2 (08:39→22:06)
[2019-11-27] MEDS: docusate sod 100mg capsule PO SCH ×2 (08:39→22:06)
[2019-11-27] MEDS: atorvastatin 20mg tablet PO SCH (08:40)
[2019-11-27] MEDS: clopidogrel 75mg tablet PO SCH (08:40)
[2019-11-27] MEDS: zonisamide 100mg capsule PO SCH ×2 (08:41→22:06)
[2019-11-27] MEDS: aspirin 325mg tablet PO SCH (08:41)
[2019-11-27] MEDS: POTASSIUM BICARB 20meq eff tab 20 MEQ TABLET.EFF PO PRN ×3 (08:42→22:33)
[2019-11-27] MEDS: K and/or MAG REPLACEMENT MC SCH ×2 (08:46→20:00)
[2019-11-27] MEDS: iron sucrose complex injection 200 MG in normal saline 100ml IV soln 100 ML IV SCH (10:40)
[2019-11-27 11:00] VITALS: BP 151/85
--- NOTE | 2019-11-27 15:36 | NUR ---
Medium amount of hard rocks stool Addendum: 11/27/19 at 1537 by Narcisa PADRON Amended: Links added.
--- NOTE | 2019-11-27 16:16 | NUR ---
Patient is without sitter, no behavior problems today. Patient took all medication prescribed and remained cooperative to care.
[2019-11-27 18:00] VITALS: BP 147/89
--- NOTE | 2019-11-27 18:27 | NUR ---
Problems reprioritized. Patient report given, questions answered & plan of care reviewed with Alonso WEAVER. Patient stable at transfer of care.
--- NOTE | 2019-11-27 18:46 | NUR ---
Patient in room PCU 3016. I have received report from Safia WEAVER and had the opportunity to ask questions and assume patient care.
--- NOTE | 2019-11-27 21:00 | NUR ---
pt refused, yelled I just want to be left alone
--- NOTE | 2019-11-27 21:00 | NUR ---
pt refused BG, miguelito I want to be left alone Addendum: 11/28/19 at 0324 by Carmela Vázquez RN Amended: Links added.
--- NOTE | 2019-11-27 21:30 | NUR ---
Pts son Migue called several times. Returned his call to . Wanted a status update. Reviewed what Pt knew "multisystem disease" and related these are also the most recent progress notes, son is up to date. He asked for Hgb & RBC labs. He asked cooperation level of his mom. He wanted the staff here to know this is not his moms normal affect and that she has been progressively losing weight, approx. 80lbs in 3 mos, decreased appetite with complaints of metal tasting food. Explained I will make sure the information is passed on to day shift/provider.
[2019-11-27 22:00] VITALS: BP 158/70
[2019-11-28 02:00] VITALS: BP 154/79
[2019-11-28 05:42] LABS: BASOPHILS % (AUTO) 0.6 % (0-1); EOSINOPHILS # (AUTO) 0.1 X10'3 (0-0.9); EOSINOPHILS % (AUTO) 1.3 % (0-6); HEMATOCRIT 26.1 % (35.0-45.0); HEMOGLOBIN 8.6 g/dl (12.0-16.0); LYMPHOCYTES # (AUTO) 1.5 X10'3 (1.1-4.8); LYMPHOCYTES % (AUTO) 25.7 % (21-51); MEAN CORPUSCULAR HEMOGLOBIN 26.7 PG (27.0-31.0); MEAN PLATELET VOLUME 7.9 FL (7.4-10.4); MONOCYTES # (AUTO) 0.4 X10'3 (0-0.9); NEUTROPHILS # (AUTO) 3.8 X10'3 (1.8-7.7); NEUTROPHILS % (AUTO) 65.4 % (42-75); PLATELET COUNT 442 X10'3 (140-440); RED BLOOD COUNT 3.23 X10'6 (4.20-5.60); RED CELL DISTRIBUTION WIDTH 15.4 % (11.5-14.5); WHITE BLOOD COUNT 5.8 X10'3 (4.5-11.0)
[2019-11-28 05:56] LABS: ANION GAP 9 (8-16); BLOOD UREA NITROGEN 36 MG/DL (7-18); BUN/CREATININE RATIO 15.8 (6.6-38.0); CHLORIDE 107 MMOL/L (99-107); CREATININE 2.28 MG/DL (0.40-0.90); GLUCOSE 84 MG/DL (70-104); PHOSPHORUS 3.7 MG/DL (2.3-4.5); POTASSIUM 3.2 MMOL/L (3.5-5.1); SODIUM 139 MMOL/L (135-145); TOTAL CARBON DIOXIDE 23.5 MMOL/L (24-32); eGFR 22 ML/MIN
[2019-11-28 06:00] VITALS: BP 154/92
[2019-11-28 06:04] LABS: CALCIUM 7.8 MG/DL (8.5-10.1)
--- NOTE | 2019-11-28 06:07 | NUR ---
Problems reprioritized. Patient report given, questions answered & plan of care reviewed with Zee RN & Riccardo student RN.
--- NOTE | 2019-11-28 06:33 | NUR ---
Patient in room U 3016. I have received report from OWEN Huerta and had the opportunity to ask questions and assume patient care. Patient sleeping comfortably.
[2019-11-28] MEDS: carVEDilol 3.125mg tablet PO SCH ×2 (08:21→20:46)
[2019-11-28] MEDS: POTASSIUM BICARB 20meq eff tab 20 MEQ TABLET.EFF PO PRN (08:21)
[2019-11-28] MEDS: clopidogrel 75mg tablet PO SCH (08:21)
[2019-11-28] MEDS: docusate sod 100mg capsule PO SCH ×2 (08:21→20:47)
[2019-11-28] MEDS: zonisamide 100mg capsule PO SCH ×2 (08:21→20:46)
[2019-11-28] MEDS: pantoprazole 40mg Tablet.DR PO SCH (08:21)
[2019-11-28] MEDS: atorvastatin 20mg tablet PO SCH (08:22)
[2019-11-28] MEDS: K and/or MAG REPLACEMENT MC SCH ×2 (08:26→20:00)
[2019-11-28] MEDS: iron sucrose complex injection 200 MG in normal saline 100ml IV soln 100 ML IV SCH (08:43)
[2019-11-28 11:00] VITALS: BP_SYST 122; BP_SYST 145; BP_DIAS 82; BP_DIAS 84
--- NOTE | 2019-11-28 12:34 | NUR ---
Reassessment: Pt remains A/O x 2, documented to be resistive to care. Pt s/p f/u BSS with ST recs regular food and liquid consistency. Pt often refuses to eat d/t cognitive level per ST note. Patient's PO intake has slightly increased, documented with 25% PO intake at dinner 11/22, breakfast 11/23, and breakfast and lunch 11/26, although documented to have refused all surrounding meals. Pending documentation of PO intake for today. Pt would benefit from Ensure Enlive TID to optimize PO intake and provide nutrients given low PO intake of meals, MD notified. Pt with a low Vasquez of 12. Per physical assessment pt with BLE 1+ trace edema an abrasion to upper back. Wound care has been consulted for further skin assessment. [facility] 11/26. Will continue to follow closely. Rec: 1. continue renal diet- regular consistency per ST recs 2. consider diet liberalization to regular given poor PO hx; encourage PO intake 3. Ensure Enlive TID, pending MD approval in [employer]; monitor renal labs and adjust ONS recommendation as appropriate 4. supplemental nutrition support if still no/little PO day 7 and MD agreeable 5. routine bowel care 6. Scaled weight per rx Addendum: 11/28/19 at [address] Amended: Links added.
[2019-11-28] MEDS: lactose-reduced food (Ensure Enlive) - 237ml bottle PO SCH ×2 (13:00→18:00)
--- NOTE | 2019-11-28 13:00 | NUR ---
After assessing pt and providing care thus far today, patient has been cooperative during care with some reinforcement. Sometimes the patient says she doesn't want to take medications or take directions, but with some reinforcement of why things are important, she complies with treatment. Pt was able to get to the bedside commode with one person assistance, and worked with physical therapy with no complications.
[2019-11-28] MEDS: aspirin 325mg tablet PO SCH (13:09)
[2019-11-28 15:00] VITALS: BP 155/82
--- NOTE | 2019-11-28 18:33 | NUR ---
Patient in room U 3016. I have received report from Patric Koch RN and had the opportunity to ask questions and assume patient care. Pt resting with eyes closed, pt has been refusing some meds and food. Addendum: 11/28/19 at 1833 by Rehana Zaidi RN Amended: Links added.
--- NOTE | 2019-11-28 18:33 | NUR ---
Problems reprioritized. Patient report given, questions answered & plan of care reviewed with OWEN Chong. Pt sleeping comfortably. All needs met at this time.
[2019-11-28 19:00] VITALS: BP 166/86
[2019-11-28 22:30] VITALS: BP 143/86
--- NOTE | 2019-11-28 23:04 | NUR ---
Son Migue called for check up on pt. requesteing she see a neurologist prior to discharge, he will call back tomorrow, I will report to oncoming shift and leave message for discharge planning. Son also request that she get a nicotine patch in the am, she smokes 1/2 pack per day. Addendum: 11/28/19 at 2308 by Rehana Zaidi RN Amended: Links added.
--- NOTE | 2019-11-28 23:25 | NUR ---
no symptoms of low bg, bg wnl, pt request juice. Addendum: 11/28/19 at 2326 by Rehana Zaidi RN Amended: Links added.
[2019-11-29 06:00] VITALS: BP 169/88
[2019-11-29 06:13] LABS: BASOPHILS # (AUTO) 0.1 X10'3 (0-0.2); BASOPHILS % (AUTO) 0.5 % (0-1); EOSINOPHILS # (AUTO) 0.1 X10'3 (0-0.9); EOSINOPHILS % (AUTO) 1.1 % (0-6); HEMATOCRIT 26.2 % (35.0-45.0); HEMOGLOBIN 8.5 g/dl (12.0-16.0); MEAN CORPUSCULAR HEMOGLOBIN 26.3 PG (27.0-31.0); MEAN CORPUSCULAR HGB CONC 32.4 g/dL (33.0-36.5); MEAN CORPUSCULAR VOLUME 81.2 FL (78-98); MEAN PLATELET VOLUME 7.6 FL (7.4-10.4); MONOCYTES # (AUTO) 0.7 X10'3 (0-0.9); MONOCYTES % (AUTO) 5.6 % (2-12); NEUTROPHILS % (AUTO) 75.8 % (42-75); PLATELET COUNT 454 X10'3 (140-440); RED BLOOD COUNT 3.22 X10'6 (4.20-5.60); RED CELL DISTRIBUTION WIDTH 15.5 % (11.5-14.5); WHITE BLOOD COUNT 11.8 X10'3 (4.5-11.0)
--- NOTE | 2019-11-29 06:24 | NUR ---
Patient in room U 3016. I have received report from OWEN Todd and had the opportunity to ask questions and assume patient care. Patient sleeping comfortably.
--- NOTE | 2019-11-29 06:24 | NUR ---
Problems reprioritized. Patient report given, questions answered & plan of care reviewed with OWEN Koch. notified pt son called and is requesting neurology consult, and nicotine patch. pt smokes 1/2 pack daily. Addendum: 11/29/19 at 0625 by Rehana Zaidi RN Amended: Links added.
[2019-11-29 07:29] LABS: ALBUMIN 1.1 G/DL (3.4-5.0); ANION GAP 12 (8-16); BLOOD UREA NITROGEN 37 MG/DL (7-18); BUN/CREATININE RATIO 15.7 (6.6-38.0); CHLORIDE 106 MMOL/L (99-107); CREATININE 2.35 MG/DL (0.40-0.90); GLUCOSE 69 MG/DL (70-104); PHOSPHORUS 3.9 MG/DL (2.3-4.5); POTASSIUM 3.3 MMOL/L (3.5-5.1); SODIUM 139 MMOL/L (135-145); TOTAL CARBON DIOXIDE 21.1 MMOL/L (24-32); eGFR 21 ML/MIN
[2019-11-29] MEDS: lactose-reduced food (Ensure Enlive) - 237ml bottle PO SCH ×3 (08:00→18:00)
[2019-11-29] MEDS: K and/or MAG REPLACEMENT MC SCH ×3 (08:00→20:00)
[2019-11-29] MEDS: atorvastatin 20mg tablet PO SCH (08:14)
[2019-11-29] MEDS: pantoprazole 40mg Tablet.DR PO SCH (08:14)
[2019-11-29] MEDS: aspirin 325mg tablet PO SCH (08:14)
[2019-11-29] MEDS: clopidogrel 75mg tablet PO SCH (08:14)
[2019-11-29] MEDS: zonisamide 100mg capsule PO SCH ×2 (08:15→19:22)
[2019-11-29] MEDS: iron sucrose complex injection 200 MG in normal saline 100ml IV soln 100 ML IV SCH (08:15)
[2019-11-29] MEDS: carVEDilol 3.125mg tablet PO SCH ×2 (08:15→19:22)
[2019-11-29] MEDS: docusate sod 100mg capsule PO SCH ×2 (08:18→19:22)
[2019-11-29 11:00] VITALS: BP 144/72
--- NOTE | 2019-11-29 11:20 | NUR ---
Bilateral feet edematous. No edema present in legs. Addendum: 11/29/19 at 1133 by Vicky PADRON Amended: Links added.
[2019-11-29] MEDS ORDERED: potassium Cl 20 mEq SR tablet PO PRN (12:05)
[2019-11-29] MEDS ORDERED: nicotine 14mg patch - 24hr TD ONE (12:05)
[2019-11-29] MEDS ORDERED: potassium CL 10mEq/100ml bag 100 ML IV PRN ×2 (12:05)
[2019-11-29] MEDS ORDERED: magnesium Cl slow-release 64mg tablet PO PRN (12:05)
[2019-11-29] MEDS ORDERED: magnesium 4gm in 100ml NS 100 ML IV PRN (12:05)
[2019-11-29] MEDS ORDERED: magnesium 2GM in 50ml NS 50 ML IV PRN (12:05)
[2019-11-29 15:00] VITALS: BP 146/80
[2019-11-29] MEDS: potassium Cl 20 mEq SR tablet PO PRN ×2 (15:24→19:22)
--- NOTE | 2019-11-29 15:48 | NUR ---
Patient is scheduled to get Ensure's with meals, the Ensure's never came up on the trays from dietary. I called dietary and asked them to add them to the patient's trays with her meals.
[2019-11-29 18:00] VITALS: BP 144/86
--- NOTE | 2019-11-29 18:20 | NUR ---
Student Medication Administration: For this medication-pass time frame, all medication were reviewed, dispensed, administered and documented per hospital policy by garrett Perry.
--- NOTE | 2019-11-29 18:20 | NUR ---
Student documentation: I have reviewed and agree with all interventions, assessments performed and documented by Vicky, nursing program manager.
--- NOTE | 2019-11-29 18:21 | NUR ---
Problems reprioritized. Patient report given, questions answered & plan of care reviewed with OWEN Pablo. Patient sitting up in bed, watching tv. All needs met at this time.
[2019-11-29] MEDS: heparin, porcine 5000 units/ml vial SQ SCH (19:26)
[2019-11-29 22:30] VITALS: BP 159/88
[2019-11-30] VITALS (8 sets, daily range): BP systolic 109–162; BP diastolic 64–84
--- NOTE | 2019-11-30 00:20 | NUR ---
Patient in room PCU 3016. I have received report from OWEN Koch and had the opportunity to ask questions and assume patient care.
[2019-11-30] MEDS: potassium Cl 20 mEq SR tablet PO PRN (04:19)
--- NOTE | 2019-11-30 05:58 | NUR ---
Problems reprioritized. Patient report given, questions answered & plan of care reviewed with OWEN Koch.
--- NOTE | 2019-11-30 06:10 | NUR ---
Patient in room PCU 3016. I have received report from OWEN Pablo and had the opportunity to ask questions and assume patient care.
[2019-11-30 06:37] LABS: BASOPHILS % (AUTO) 0.5 % (0-1); EOSINOPHILS # (AUTO) 0.2 X10'3 (0-0.9); EOSINOPHILS % (AUTO) 1.7 % (0-6); HEMATOCRIT 22.3 % (35.0-45.0); HEMOGLOBIN 7.5 g/dl (12.0-16.0); LYMPHOCYTES % (AUTO) 20.8 % (21-51); MEAN CORPUSCULAR HGB CONC 33.5 g/dL (33.0-36.5); MEAN CORPUSCULAR VOLUME 80.7 FL (78-98); MEAN PLATELET VOLUME 7.6 FL (7.4-10.4); MONOCYTES # (AUTO) 0.5 X10'3 (0-0.9); MONOCYTES % (AUTO) 5.4 % (2-12); NEUTROPHILS # (AUTO) 6.8 X10'3 (1.8-7.7); NEUTROPHILS % (AUTO) 71.6 % (42-75); PLATELET COUNT 400 X10'3 (140-440); RED BLOOD COUNT 2.76 X10'6 (4.20-5.60); RED CELL DISTRIBUTION WIDTH 15.5 % (11.5-14.5); WHITE BLOOD COUNT 9.4 X10'3 (4.5-11.0)
[2019-11-30 06:56] LABS: ALBUMIN 1.1 G/DL (3.4-5.0); ANION GAP 11 (8-16); BLOOD UREA NITROGEN 37 MG/DL (7-18); BUN/CREATININE RATIO 15.6 (6.6-38.0); CALCIUM 8.1 MG/DL (8.5-10.1); CHLORIDE 106 MMOL/L (99-107); CREATININE 2.37 MG/DL (0.40-0.90); GLUCOSE 79 MG/DL (70-104); PHOSPHORUS 3.4 MG/DL (2.3-4.5); POTASSIUM 3.5 MMOL/L (3.5-5.1); SODIUM 137 MMOL/L (135-145); eGFR 21 ML/MIN
[2019-11-30] MEDS: K and/or MAG REPLACEMENT MC SCH ×4 (08:00→19:39)
[2019-11-30] MEDS: lactose-reduced food (Ensure Enlive) - 237ml bottle PO SCH ×3 (08:00→18:00)
[2019-11-30] MEDS ORDERED: epoetin 20,000 units/ml inj SQ ONE (08:30)
[2019-11-30] MEDS: carVEDilol 3.125mg tablet PO SCH ×2 (08:35→20:02)
[2019-11-30] MEDS: docusate sod 100mg capsule PO SCH ×2 (08:35→19:58)
[2019-11-30] MEDS: pantoprazole 40mg Tablet.DR PO SCH (08:35)
[2019-11-30] MEDS: clopidogrel 75mg tablet PO SCH (08:35)
[2019-11-30] MEDS: atorvastatin 20mg tablet PO SCH (08:35)
[2019-11-30] MEDS: aspirin 325mg tablet PO SCH (08:36)
[2019-11-30] MEDS: zonisamide 100mg capsule PO SCH ×2 (08:36→19:58)
[2019-11-30] MEDS: iron sucrose complex injection 200 MG in normal saline 100ml IV soln 100 ML IV SCH (08:38)
[2019-11-30] MEDS: heparin, porcine 5000 units/ml vial SQ SCH ×2 (08:43→19:58)
--- NOTE | 2019-11-30 17:45 | NUR ---
Student documentation: I have reviewed and agree with all interventions, assessments performed and documented by Derian, practical nursing teacher.
--- NOTE | 2019-11-30 17:46 | NUR ---
Student Medication Administration: For this medication-pass time frame, all medication were reviewed, dispensed, administered and documented per hospital policy by garrett Menard.
--- NOTE | 2019-11-30 18:00 | NUR ---
Patient in room [facility] 2010. I have received report from Zee WEAVER and had the opportunity to ask questions and assume patient care. Addendum: 12/01/19 at 0458 by Celean Salmon RN Amendment to above notation. Received report from Zee WEAVER from [facility] 11/29 at 1800 and had the opportunity to ask questions and assume patient care.
--- NOTE | 2019-11-30 18:32 | NUR ---
Problems reprioritized. Patient report given, questions answered & plan of care reviewed with OWEN Dallas. Pt eating dinner. All needs met at this time.
--- NOTE | 2019-11-30 21:45 | NUR ---
Arrived to 3016B pt leaving for CT scan. Chart reviewed and telemedicine cart at bedside SOC telemed contacted.
[2019-11-30 21:50] LABS: ABG BASE EXCESS -3.4 mmol/L (-2.0-3.0); ABG HCO3 18.4 mmol/L (22.0-26.0); ABG OXYGEN SATURATION 96.1 % (95-98); ABG PCO2 (T) 23.1 mmHg (35.0-45.0); ABG PO2 (T) 78.6 mmHg (83-108); ALLEN'S TEST POSITIVE; FCOHb 0.2 % (0.5-1.5); FMetHb 0.2 % (0.3-1.12); FO2Hb 95.7 % (94-100); TOTAL HEMOGLOBIN 8.9 G/dl (12.0-16.0)
--- NOTE | 2019-11-30 22:00 | NUR ---
Patient went to degree heart block with HR at 34 notified by telephone clerks supervisor. Found patient slumped over, unresponsive to tactile stimuli or sternal rub. Patient appears pallor in the face. Patient's VSS and 02 saturation was at 96 % RA and blood sugar of 112. Rapid response was called. call center rn perishable fruit inspector notified and assessed patient. ordered labs, stat CT. Sent down to CT. During patient's evening med pass, patient was alert and oriented and no signs neurological effects. Was able to transfer to bed with SN's assistance. Due to patient's CT presentation, patient was send to ICU. Report given to Sam WEAVER in ICU.
[2019-11-30 22:01] LABS: BASOPHILS # (AUTO) 0.1 X10'3 (0-0.2); BASOPHILS % (AUTO) 0.5 % (0-1); EOSINOPHILS # (AUTO) 0.2 X10'3 (0-0.9); EOSINOPHILS % (AUTO) 1.1 % (0-6); HEMATOCRIT 26.1 % (35.0-45.0); HEMOGLOBIN 8.6 g/dl (12.0-16.0); LYMPHOCYTES # (AUTO) 4.6 X10'3 (1.1-4.8); LYMPHOCYTES % (AUTO) 28.7 % (21-51); MEAN CORPUSCULAR HEMOGLOBIN 26.9 PG (27.0-31.0); MEAN CORPUSCULAR HGB CONC 32.8 g/dL (33.0-36.5); MEAN PLATELET VOLUME 7.6 FL (7.4-10.4); MONOCYTES # (AUTO) 0.9 X10'3 (0-0.9); MONOCYTES % (AUTO) 5.4 % (2-12); NEUTROPHILS # (AUTO) 10.4 X10'3 (1.8-7.7); NEUTROPHILS % (AUTO) 64.3 % (42-75); PLATELET COUNT 542 X10'3 (140-440); RED BLOOD COUNT 3.18 X10'6 (4.20-5.60); RED CELL DISTRIBUTION WIDTH 15.5 % (11.5-14.5); WHITE BLOOD COUNT 16.2 X10'3 (4.5-11.0)
--- NOTE | 2019-11-30 22:10 | NUR ---
Patient arrived to CICU from CT with orthopedic shoes salesperson in attendance. Patient currently unresponsive. Positive gag with insertion of OPA. NPA placed, patient with snoring respirations at 13 breaths per minute. Placed on 2 lpm nasal cannula. OWEN Ashton Stroke nurse, at bedside. Patient placed on environmental monitoring technician showing sinus rhythm at 111. BP 123/73. 2220: Tele med with Neurologist. Stroke RN remained at bedside for exam. Pupils are non reactive at 2mm. Patients cardiac rhythm changed to sinus rhythm in the 80's with frequent PAC's noted. June Henry, INEZ at bedside. Cardiac rhythm back to normal sinus rhythm.
[2019-11-30 22:14] LABS: ALANINE AMINOTRANSFERASE 15 U/L (12-78); ALBUMIN 1.2 G/DL (3.4-5.0); ALBUMIN/GLOBULIN RATIO 0.4 (1.1-1.5); ALKALINE PHOSPHATASE 96 IU/L (46-116); ANION GAP 12 (8-16); ASPARTATE AMINO TRANSFERASE 29 U/L (10-37); BILIRUBIN,TOTAL 0.2 MG/DL (0.1-1.0); BLOOD UREA NITROGEN 33 MG/DL (7-18); CALCIUM 8.3 MG/DL (8.5-10.1); CHLORIDE 105 MMOL/L (99-107); CREATININE 2.35 MG/DL (0.40-0.90); GLUCOSE 124 MG/DL (70-104); MAGNESIUM 2.2 MG/DL (1.5-2.4); PHOSPHORUS 3.3 MG/DL (2.3-4.5); POTASSIUM 3.8 MMOL/L (3.5-5.1); SODIUM 138 MMOL/L (135-145); TOTAL PROTEIN 4.6 G/DL (6.4-8.2); eGFR 21 ML/MIN
--- NOTE | 2019-11-30 22:15 | NUR ---
Patient in room CICU 2010. I have received report from OWEN Oviedo and had the opportunity to ask questions and assume patient care.
--- NOTE | 2019-11-30 22:15 | NUR ---
Neurology consult complete with MD YEN to contact Dr. Paulino with recommendations. PT has a bleed per CT scan. Pt is non responsive, no movement to painful stimuli, negative dolls eyes, negative pupil response, negative gag.
[2019-11-30 22:27] LABS: PARTIAL THROMBOPLASTIN TIME 38 SECONDS (22-32)
[2019-11-30] MEDS ORDERED: MANNITOL 12.5 GM/50 ML IV ONE ×3 (22:50→23:40)
--- NOTE | 2019-11-30 23:02 | NUR ---
patients family at bedside.
[2019-12-01] VITALS: BP 50/29
--- NOTE | 2019-12-01 | NUR ---
Change in patients respiratory rate and blood pressure. 81/50 [id number] agonal respirations Addendum: 12/01/19 at 0034 by Dayna Bateman RN Merari Figueroa NP made aware of change in patients condition. BP 50/29
--- NOTE | 2019-12-01 00:52 | NUR ---
RN IS TO DOCUMENT YES TO ALL APPLICABLE AREAS Pronouncement of : 1. Time Physician Notified: 99 2. Date of : 12/01/2019 3. Time of : 51 4. DNR/Withdraw life support documented: yes 5. Monitor strip has been placed on chart: yes 6. Assessment process is of one-minute duration and includes following criteria: a) Patient is unresponsive to all stimuli: yes b) Pupils fixed and non-reactive: yes c) Auscultation of precordium reveals absence of heart tones: yes d) Auscultation of lungs reveals absence of breath sounds: yes e) Absence of blood pressure / all vital signs: yes f) QRS complexes are not present on monitor / EKG strip: yes g) Pacer spikes without capture: n/a 4. Comments: Patients son Migue notified via phone. He will notify the rest of his family. Verbal consent for Robert in [place] to be used as the home. Patients belongings consisting of one t-shirt sent with patient to home.
--- NOTE | 2019-12-01 02:03 | NUR ---
Robert Katz called, no answer on phone. Voice mail left for return phone call. Addendum: 12/01/19 at 0243 by Dayna Bateman RN 3rd phone call to Robert: Patient information given, will orange picking supervisor patient.
== END 2019-12-01 00:52 | disposition expired | DRG 45 ==
LOC: ER 17:08 → INTOOBSV 19:54 → OBSVTOIN 19:54 → ED HOLD 19:54 → SUR 3N 20:46 → ED HOLD 20:46 → OBSVTOIN 11-21 10:00 → SUR 3N 11-21 10:01 → ORTHO 4S 11-21 17:09 → PCU 3S 11-22 00:50 → CICU 2S 11-22 03:45 → PCU 3S 11-25 15:22 → CICU 2S 11-30 22:10
PROVIDERS: ADMIT Family Medicine; ATTEND Family Medicine
DX: I63.89 Other cerebral infarction (principal); I21.19 ST elevation (STEMI) myocardial infarction involving other coronary artery of inferior wall; I60.8 Other nontraumatic subarachnoid hemorrhage; N17.0 Acute kidney failure with tubular necrosis; G93.40 Encephalopathy, unspecified; I95.9 Hypotension, unspecified; E11.22 Type 2 diabetes mellitus with diabetic chronic kidney disease; I44.2 Atrioventricular block, complete; I62.9 Nontraumatic intracranial hemorrhage, unspecified; E86.1 Hypovolemia; I45.4 Nonspecific intraventricular block; D64.9 Anemia, unspecified; E87.6 Hypokalemia; F17.210 Nicotine dependence, cigarettes, uncomplicated; F43.10 Post-traumatic stress disorder, unspecified; G40.909 Epilepsy, unspecified, not intractable, without status epilepticus; G51.0 Bell's palsy; I12.9 Hypertensive chronic kidney disease with stage 1 through stage 4 chronic kidney disease, or unspecified chronic kidney disease; I25.2 Old myocardial infarction; I46.9 Cardiac arrest, cause unspecified; N18.2 Chronic kidney disease, stage 2 (mild); Z66 Do not resuscitate; Z78.1 Physical restraint status; Z86.73 Personal history of transient ischemic attack (TIA), and cerebral infarction without residual deficits; Z90.710 Acquired absence of both cervix and uterus; I99.8 Other disorder of circulatory system
CPT/HCPCS: 36415; 36600; 70450; 70544; 70551; 71045; 76775; 76937; 80048; 80053; 80061; 80305; 80320; 81001; 82140; 82570; 82607; 82728; 82803; 82948; 83036; 83540; 83550; 83605; 83735; 84100; 84132; 84145; 84156; 84300; 84443; 84484; 85018; 85025; 85610; 85730; 86885; 86900; 86901; 87040; 87077; 87081; 87088; 87186; 87207; 92508; 92523; 93005; 93306; 93308; 93880; 97116; 97161; 97530; 99285; C9113; G0378; J0461; J1265; J1644; J1756; J1815; J1940; J2060; J2150; J2270; J2405; J3475; J3480; J7030; J7050; Q4081